=== PATIENT | female | born 1975 | race Caucasian/White ===

== ENCOUNTER 2024-12-09 15:34 | Outpatient (CLI) | payer OTHER | END 2024-12-09 15:35 | disposition home or self-care (01) | LOC: BICMAMMO 15:34 | PROVIDERS: ATTEND Physician Assistant | DX: Z12.31 Encounter for screening mammogram for malignant neoplasm of breast (principal) | CPT/HCPCS: 77063; 77067 ==

== ENCOUNTER 2024-12-27 13:09 | Outpatient (CLI) | payer OTHER | END 2024-12-27 13:10 | disposition home or self-care (01) | LOC: SCSMRI 13:09 | PROVIDERS: ATTEND Family Medicine | DX: M25.512 Pain in left shoulder (principal); S46.112A Strain of muscle, fascia and tendon of long head of biceps, left arm, initial encounter; M67.814 Other specified disorders of tendon, left shoulder ==